=== PATIENT | male | born 1960 | race Caucasian/White ===

== ENCOUNTER 2018-09-11 14:33 | Emergency (ER) | payer SELFPAY ==
[~2018-09-11] VITALS: Ht 177.8 cm; Wt 68.0 kg
[2018-09-11 14:42] VITALS: BP 116/63
[2018-09-11] MEDS ORDERED: SILVER SULFADIAZINE CREAM 25 GM TUBE TP ONE (15:00)
[2018-09-11] MEDS ORDERED: SILVER SULFADIAZINE CREAM 25 GM TUBE ONE (15:08)
== END 2018-09-11 15:37 | disposition home or self-care (01) ==
LOC: ER 14:33
DX: T23.241A Burn of second degree of multiple right fingers (nail), including thumb, initial encounter (principal); F17.210 Nicotine dependence, cigarettes, uncomplicated; X19.XXXA Contact with other heat and hot substances, initial encounter; Y93.89 Activity, other specified; Y92.89 Other specified places as the place of occurrence of the external cause; Y99.8 Other external cause status

== ENCOUNTER 2018-10-14 21:18 | Emergency (ER) | payer SELFPAY ==
[~2018-10-14] VITALS: Ht 177.8 cm; Wt 68.0 kg
--- NOTE | 2018-10-14 21:56 | NUR ---
PT BIBSELF C/O BILATERAL TESTICLE PAIN AND SWELLING X1 HR, PT IS AAOX4, NOT IN RESPIRATORY, HOOKED TO MONITOR, KEPT RESTED AND COMFORTABLE, WILL CONTINUE TO MONITOR.
--- NOTE | 2018-10-14 22:10 | NUR ---
IV LINE ESTABLISHED, BLOOD DRAWNED AND SENT TO LAB.
--- NOTE | 2018-10-14 22:14 | NUR ---
TECH AT BEDSIDE FOR TESTICULAR US.
--- NOTE | 2018-10-14 22:38 | NUR ---
URINE SPECIMEN COLLECTED AND SENT TO LAB.
[2018-10-14 22:45] LABS: APPEARANCE,URINE CLEAR (CLEAR); BILIRUBIN,URINE NEGATIVE (NEGATIVE); BLOOD, URINE N Ery/uL (NEGATIVE); COLOR,URINE YELLOW (YELLOW); KETONES,URINE NEGATIVE (NEGATIVE); LEUKOCYTE ESTERASE ,URINE NEGATIVE (NEGATIVE); NITRITE, URINE NEGATIVE (NEGATIVE); PH,URINE 5.5 (5.0-8.0); PROTEIN,URINE NEGATIVE (NEGATIVE); UGLUCOSE NEGATIVE (NEGATIVE)
--- NOTE | 2018-10-14 23:50 | NUR ---
PT IS WHEELED TO CT SCAN.
[2018-10-15 00:02] LABS: CALCIUM, SERUM 7.7 mg/dL (8.5-10.1); POTASSIUM 4.1 mmol/L (3.5-5.1)
[2018-10-15 00:08] LABS: ALBUMIN 2.2 g/dL (3.4-5.0); BILIRUBIN,DIRECT 0.2 mg/dL (0.0-0.2); BILIRUBIN,TOTAL 0.7 mg/dL (0.2-1.0); TOTAL PROTEIN, SERUM 6.1 g/dL (6.4-8.2)
[2018-10-15 00:10] LABS: EOSINOPHILS % (AUTO) 3.2 % (0.0-6.0); HEMATOCRIT 32 % (39-51); HEMOGLOBIN 11.1 g/dL (13.5-17.5); LYMPHOCYTES % (AUTO) 17.1 % (20.0-44.0); MEAN CORPUSCULAR HGB CONC 35 g/dl (31.0-36.0); MEAN CORPUSCULAR VOLUME 95 fL (80-96); MONOCYTES % (AUTO) 8.7 % (2.0-12.0); NEUTROPHILS % (AUTO) 70.3 % (43.0-81.0); PLATELET COUNT (AUTO) 102 /CMM (150-450); RED BLOOD CELL COUNT(AUTO) 3.35 MIL/uL (4.5-6.0); WHITE BLOOD COUNT (AUTO) 5.9 K/uL (4.3-11.0)
[2018-10-15 00:11] LABS: BASOPHILS % (AUTO) 0.7 % (0.0-2.0)
[2018-10-15 01:29] VITALS: BP 134/71
--- NOTE | 2018-10-15 01:58 | NUR ---
IV removed. Catheter intact and site benign. Pressure and 4x4 applied to site. No bleeding noted. Patient discharged to home in stable condition. Written and verbal after care instructions given. Patient verbalizes understanding of instruction.
== END 2018-10-15 02:05 | disposition home or self-care (01) ==
LOC: ER 21:20
DX: K74.60 Unspecified cirrhosis of liver (principal); N50.89 Other specified disorders of the male genital organs; R60.0 Localized edema
CPT/HCPCS: 36415; 76870-TC; 80048-TC; 80076-TC; 81000-TC; 83690-TC; 85025-TC; 85730-TC

== ENCOUNTER 2018-12-16 19:32 | Emergency (ER) | payer SELFPAY ==
[~2018-12-16] VITALS: Ht 177.8 cm; Wt 68.0 kg
--- NOTE | 2018-12-16 20:05 | NUR ---
Pt BIBSELF FROM HOME C/O NONRADIATING RT SIDED CP. DENIES HAVING SOB. NO N/V/D. HAS PAIN WHEN COUGHING. Pt IS A/OX4, VERBAL, ABLE TO MAKE NEEDS KNOWN. Pt IS AFEBRILE. PER Pt's STATEMENT HAS NO HX OF NM BEFORE OR ANGINA IN THE PAST. Pt ON MONITOR. VS STABLE. NO S/S OF ACUTE DISTRESS OR SOB NOTED. Pt ALREADY SEEN BY EDITORIAL PROJECT MANAGER AT BEDSIDE. WILL CONTINUE TO MONITOR Pt's CONDITION AND SAFETY.
--- NOTE | 2018-12-16 20:25 | NUR ---
CXR BEING DONE AT BEDSIDE.
[2018-12-16] MEDS ORDERED: predniSONE 20 MG TABLET ONE (20:45)
--- NOTE | 2018-12-16 20:53 | NUR ---
ORDERED MEDS GIVEN
[2018-12-16] MEDS ORDERED: ALBUTEROL FS 2.5 MG/3 ML VIAL.NEB NEB ONE (21:00)
[2018-12-16] MEDS ORDERED: IPRATROPIUM NEB FS 0.5 MG/2.5 ML AMPUL.NEB NEB ONE (21:00)
[2018-12-16] MEDS ORDERED: predniSONE 20 MG TABLET PO ONE (21:00)
[2018-12-16] MEDS ORDERED: IPRATROPIUM NEB FS 0.5 MG/2.5 ML AMPUL.NEB ONE (21:42)
[2018-12-16] MEDS ORDERED: ALBUTEROL FS 2.5 MG/3 ML VIAL.NEB ONE (21:42)
[2018-12-16 22:54] VITALS: BP 122/66
== END 2018-12-16 22:54 | disposition home or self-care (01) ==
LOC: ER 19:34
DX: J40 Bronchitis, not specified as acute or chronic (principal); R06.2 Wheezing; F17.200 Nicotine dependence, unspecified, uncomplicated
CPT/HCPCS: 71045; 93005; 94640; 99283; J7512